=== PATIENT | female | born 1945 | race Caucasian/White ===

== ENCOUNTER → 2017-06-27 | Outpatient (CLI) | payer OTHER ==
[~2017-06-27] MED LIST: AMLO5TAB96 PO; ASPI81 PO; CALTTAB2 PO; DEPA500T3 PO; FOLI1TAB PO; LEVO50TA4 PO; OXYC-360 PO; SERT50 PO; SIMV20 PO; TAB-TAB PO; ZYPR15TA PO
== END ==
LOC: HEDF 17:00
DX: S01.81XA Laceration without foreign body of other part of head, initial encounter (principal); V43.52XA Car driver injured in collision with other type car in traffic accident, initial encounter
CPT/HCPCS: A0431-QM-SH; A0436-QM-SH